=== PATIENT | male | born 1995 | race Caucasian/White ===

== ENCOUNTER 2018-07-02 14:47 | Emergency (ER) | payer SELFPAY ==
[~2018-07-02] VITALS: Ht 188 cm; Wt 127.3 kg
[2018-07-02 15:07] VITALS: BP 103/75
== END 2018-07-02 15:45 | disposition home or self-care (01) ==
LOC: EMS 14:48
DX: S01.511A Laceration without foreign body of lip, initial encounter (principal); L08.9 Local infection of the skin and subcutaneous tissue, unspecified; F12.90 Cannabis use, unspecified, uncomplicated; F17.210 Nicotine dependence, cigarettes, uncomplicated; W22.8XXA Striking against or struck by other objects, initial encounter; Y93.89 Activity, other specified; Y92.89 Other specified places as the place of occurrence of the external cause; Y99.8 Other external cause status